=== PATIENT | female | born 1955 | race Caucasian/White ===

== ENCOUNTER → 2020-11-29 13:56 | Outpatient (CLI) | payer OTHER, SELFPAY ==
--- NOTE | ~2020-11-29 | MR_ITS ---
EXAMINATION: MR abdomen wo/w con INDICATION: Microscopic hematuria, history of right nephrectomy TECHNIQUE: Coronal SSFSE ARC, WATER:coronal LAVA-FLEX, Coronal 2D FIESTA FatSat, Axial SSFSE BH ARC, Axial 3D DualEcho BH, Axial SSFSE-IR, Axial DWI b=500, Axial 2D FIESTA FatSat, pre and dynamic postco ntrast Axial LAVA ARC, postcontrast Coronal In and Opposed phase LAVA FLEX COMPARISON: 06/05/2008 CONTRAST: Multihance, 12 cc FINDINGS: There are changes of cholecystectomy and right nephrectomy. There is a 1.3 cm hemorrhagic c yst of the left kidney upper pole. No suspicious renal or urothelial lesion is identified. There is n o hydronephrosis or hydroureter. The spleen, pancreas, and adrenal glands are normal. There is a parking lot manager cornel and unchanged 2.9 x 1.5 cm T1 hypointense, T2 hyperintense lesion in the right hepatic lobe which demonstrates slow filling with contrast, consistent with a hemangioma. Mild enlargement of the commo n bile duct is consistent with post cholecystectomy state. There are no pathologically enlarged abdom inal lymph nodes. No dilated loops of bowel are evident. IMPRESSION: 1. Hemorrhagic cyst of the left kidney upper pole. 2. Changes of interval cholecystectomy right nephrectomy. Reviewed, dictated and finalized at location B.
[2020-11-29 14:25] LABS: Estimated Glomerular Filt Rate > 60
== END ==
PROVIDERS: PCP Nurse Practitioner Family
DX: R31.29 Other microscopic hematuria (principal); N28.1 Cyst of kidney, acquired; Z90.49 Acquired absence of other specified parts of digestive tract
CPT/HCPCS: 74183; A9577

== ENCOUNTER 2022-03-02 00:17 | Day surgery (SDC) | payer BC, SELFPAY ==
--- NOTE | 2022-02-24 15:46 | PC.NURSE ---
Report to the Outpatient Waiting Room, entrance under the green pavilion located off [facility], at time ___0915____ on date __03/02/22 . OR Time: ___1114 . Time changes happen often and if your time is changed the preop area will call you the afternoon before. - You and your visitor will be asked to self-screen and do not enter if you have any COVID symptoms. - Only one visitor and NO children visitors are allowed at this time. - The patient visitor is requested to leave or wait in car when not with patient due to restrictions. - A mask is required within the hospital. Patients may have clear liquids (water, carbonated beverages, clear teas, apple juice) until 3 hours prior to surgery (0815 AM )with a maximum of 20 ounces. - No food from midnight until time of surgery - Infants may have breast milk until 4 hours before surgery, formula 6 hours prior to surgery. - Children will be allowed to drink immediately following surgery. If applicable, please bring a bottle or sippy cup to assist with drinking. Juice, water, soda, and popsicles are readily available. For infants on formula, please bring formula the day of surgery. Pacifiers are allowed. Take the following medications with a SIP of water the morning of surgery: _ATENOLOL LORAZEPAM, NIFEDIPINE & INHALER IF NEEDED__ Medications to discontinue per physician N/A Date to take last dose Please no make-up, nail singaporean, hairspray, perfume, deodorant, or body powder the day of surgery. No jewelry (including any body piercings) or valuables the day of surgery, leave them at home. Please take a shower or bath the night before, or the morning of, surgery with an antibacterial soap. Wear comfortable, loose fitting clothing. Children are encouraged to wear pajamas. - Jewelry must be removed prior to entering the operating room. Rings and piercings that are not removed may be cut off. - The hospital will not accept responsibility for valuables. - Please leave all valuables, including medications, at home the day of surgery. If you are going home after surgery, a licensed milk tanker driver must drive you home. - NO public transportation without another adult. - We recommend that an adult stay with you for 24 hours following discharge. - We also recommend that you do not drive, make important decision, drink alcoholic beverages, or take any drugs that were not prescribed by your health care provider for at least 24 hours after your discharge time. For Pediatric surgeries, we recommend two adults accompany the child home (only one inside the building at this time). Follow any additional instructions given to you from your surgeon. If you or anyone in your household have experienced Covid symptoms in the past week, please notify your surgeon or the nurse liaison at the phone number below for possible testing. Telephone instructions given to ___PT and asked if any additional questions and then verbalized understanding. Patient advised to call surgeon office or pre surgery nurse liaison [phone] if any additional questions.
[2022-02-24 15:48] VITALS: BMI 24.0
--- NOTE | 2022-03-02 08:27 | WPDHPUPDATE1 ---
History and Physical Update Update Date/Time: 03/02/22 08:27 History and Physical has been reviewed, including an updated exam of the patient. There are NO changes in the patient's condition. Risks, benefits, and alternatives have been discussed and questions answered. Patient agrees to proceed with procedure.
--- NOTE | 2022-03-02 08:27 | PM.HPGS ---
History of Present Illness History of Present Illness Consent: Risks, benefits, and alternatives have been discussed and questions answered. Patient agrees to proceed with procedure. Chief complaint: post menopausal bleeding Narrative: Valentina Davis is a 66 year old female with postmenopausal bleeding. Patient's 1st episode was October of 2020. She has had 2 episodes since that time the latest being October of 2021 the patient was seen as a new patient in December of 2021 after having a workup with Urology that was negative. It was recommended to proceed with D&C hysteroscopy as this has occurred 3 times over 1 year. Risks of infection, bleeding, perforation, and possible pathology were reviewed. Patient voices understanding and agrees to proceed. Review of Systems Review of Systems: not repeated day of surgery; patient states no changes in status PMFSH Past Medical History Medical History (Updated 03/02/22 @ 08:31 by Karma Kee MD) Anemia Anxiety COPD (chronic obstructive pulmonary disease) Hyperlipidemia Hypertension (normal spontaneous vaginal delivery) X3 Osteopenia Post-menopausal Renal carcinoma Vitamin deficiency Surgical History Surgical History (Updated 03/02/22 @ 08:30 by Karma Kee MD) History of laparoscopic cholecystectomy History of nephrectomy, right Family History Family History (Updated 12/16/17 @ 11:48 by DOCTOR UNKNOWN) Mother Hypertension Other Family history of cardiovascular disease Social History Social History (Updated 05/03/19 @ 11:37 by Kimberli Yepez [facility]) Years smoked: 15 Smoking status: Current every day smoker Tobacco type: cigarettes Second hand tobacco smoke exposure: Yes Additional smoking assessment comments: STATES WAS SMOKING 1PK/DAY NOW DOWN TO 3 CIGARETTES/DAY Alcohol intake: current Alcohol use details: STATES VERY SELDOM Substance use: never Substance use type: does not use Living arrangements: with friend(s) Additional living arrangements comments: LIVES WITH SIGNIFICANT OTHER REYNALDO HEREDIA Spiritual care concerns: No Meds Home Medications and Allergies Home Medications Medication Instructions Recorded Confirmed Type albuterol sulfate 90 mcg/actuation 2 puff inhalation Q4-6H PRN 05/03/19 02/24/22 History aerosol inhaler (Ventolin HFA) Wheezing doxepin 10 mg capsule 20 mg PO .hs PRN insomnia #60 caps 06/07/19 02/24/22 Rx nifedipine 30 mg tablet,extended 30 mg PO DAILY #90 tabs 08/07/19 02/24/22 Rx release 24 hr (Procardia XL) cholecalciferol (vitamin D3) 1,250 50,000 unit PO WEEKLY #8 caps 08/09/19 02/24/22 Rx mcg (50,000 unit) capsule ranitidine HCl 150 mg tablet 150 mg PO BID #60 tabs 08/09/19 02/24/22 Rx lisinopril 2.5 mg tablet 2.5 mg PO DAILY #90 tabs 08/14/19 02/24/22 Rx atenolol 50 mg tablet 50 mg PO DAILY #90 tabs 03/04/20 02/24/22 Rx lorazepam 0.5 mg tablet (Ativan) 0.5 mg BID 02/24/22 02/24/22 History Allergies Allergy/AdvReac Type Severity Reaction Status Date / Time No Known Allergies Allergy Unverified 02/24/22 15:39 Exam Const: General: healthy appearing and alert Orientation/consciousness: patient oriented x3 GI: GI Palp: Yes Soft to palpation, No Tenderness to palpation present (GI) and No Palpable mass present : External Female Exam: normal external appearance Speculum Exam - Vagina: normal appearance of the vagina, normal vaginal discharge and other (Second-degree rectocele) Speculum Exam - Cervix: normal appearance of the cervix Bimanual exam- vagina & uterus: uterine size normal and consistency normal Bimanual Exam- Adnexa, other: normal adnexae and No adnexal tenderness Neuro: General: patient oriented x3 Assessment and Plan Assessment and plan (1) Post-menopausal bleeding: Code(s): N95.0 - Postmenopausal bleeding Status: Acute Assessment and Plan: Plan to proceed with D&C hysteroscopy
[2022-03-02 10:00] VITALS: BP 144/75; PULSE 81; RESP 14; TEMP 36.6; O2SAT 99
[2022-03-02] MEDS: ACETAMINOPHEN 500 MG TABLET 1000 MG PO (10:05)
[2022-03-02] MEDS: LACTATED RINGERS 1,000 ML 30 ML IV CONT (10:05)
--- NOTE | 2022-03-02 10:39 | WPDANESEPPF ---
Anes - Initial Pre Proc Eval Procedure: Operation Date: 03/02/22 11:15 Proposed Procedures p Hysteroscopy, Dilation and Curettage - Karma Kee MD Date/Time: 03/02/22 10:39 Surgeon: Karma Kee MD Pre Op Diagnosis: post menopausal bleeding Patient Data Age: 66 Gender: F Height: 1.63 m Weight: 64.2 kg Last Vital Signs Temp 36.6 C 03/02/22 10:00 Pulse 81 03/02/22 10:00 Resp 14 03/02/22 10:00 BP 144/75 H 03/02/22 10:00 Pulse Ox 99 03/02/22 10:00 O2 Del Method Room Air 03/02/22 10:00 Allergies Allergy/AdvReac Type Severity Reaction Status Date / Time No Known Allergies Allergy Verified 03/02/22 10:06 Home Medications Medication Instructions Recorded Confirmed Type albuterol sulfate 90 mcg/actuation 2 puff inhalation Q4-6H PRN 05/03/19 02/24/22 History aerosol inhaler (Ventolin HFA) Wheezing doxepin 10 mg capsule 20 mg PO .hs PRN insomnia #60 caps 06/07/19 02/24/22 Rx nifedipine 30 mg tablet,extended 30 mg PO DAILY #90 tabs 08/07/19 03/02/22 Rx release 24 hr (Procardia XL) cholecalciferol (vitamin D3) 1,250 50,000 unit PO WEEKLY #8 caps 08/09/19 02/24/22 Rx mcg (50,000 unit) capsule ranitidine HCl 150 mg tablet 150 mg PO BID #60 tabs 08/09/19 02/24/22 Rx lisinopril 2.5 mg tablet 2.5 mg PO DAILY #90 tabs 08/14/19 02/24/22 Rx atenolol 50 mg tablet 50 mg PO DAILY #90 tabs 03/04/20 02/24/22 Rx lorazepam 0.5 mg tablet (Ativan) 0.5 mg BID 02/24/22 03/02/22 History Patient hx anesthesia problems: none Family hx anesthesia problems: none Results Review: All pre-operative results and documents have been reviewed as part of the pre-operative evaluation. [facility] Past Medical History Medical History Anemia Anxiety COPD (chronic obstructive pulmonary disease) Hyperlipidemia Hypertension (normal spontaneous vaginal delivery) X3 Osteopenia Post-menopausal Renal carcinoma Vitamin deficiency Surgical History Surgical History History of laparoscopic cholecystectomy History of nephrectomy, right Family History Family History Mother Hypertension Other Family history of cardiovascular disease Social History Social History (Updated 05/03/19 @ 11:37 by Kimberli Yepez [facility]) Years smoked: 15 Smoking status: Current every day smoker Tobacco type: cigarettes Second hand tobacco smoke exposure: Yes Additional smoking assessment comments: STATES WAS SMOKING 1PK/DAY NOW DOWN TO 3 CIGARETTES/DAY Alcohol intake: current Alcohol use details: STATES VERY SELDOM Substance use: never Substance use type: does not use Living arrangements: with friend(s) Additional living arrangements comments: LIVES WITH SIGNIFICANT OTHER REYNALDO HEREDIA Spiritual care concerns: No Anes - Eval Final PreProcedure Day of Procedure 03/02/22 10:39 Patient weight: normal Heart: regular rate and rhythm Lungs: decreased breath sounds Airway: Mallampati scale class II Neurological: alert and oriented Last oral intake: >/= 8 hours ASA classification: III Emergent: no Anesthetic plan: proceed Anesthesia type and monitoring: general GIVS and standard monitoring Results Review: All pre-operative results and documents have been reviewed as part of the pre-operative evaluation. Informed Consent: The patient's anesthetic plan and its attendant risks and benefits were discussed with the patient/family/POA. Questions were solicited and answers provided to the satisfaction of the patient/family/POA.
[2022-03-02] MEDS: LIDOCAINE HCL 1% PF 30 ML VIAL 10 ML INFILTRATE (11:12)
--- NOTE | 2022-03-02 11:23 | W.PM.PROC2 ---
Procedure Note - Detailed Date of Procedure 03/02/22 Pre-op Diagnosis post menopausal bleeding Post-op Diagnosis Same Procedure Performed D&C hysteroscopy with MyoSure resection of polyp Surgeon Karma Kee MD Anesthesia MAC and Local Findings Uterus sounds to 8cm. There is a posterior left uterine polyp. Atrophic endometrium. Description of Procedure The patient was taken to the operating room and placed under anesthesia in the dorsal lithotomy position. She was prepped and draped in the usual sterile fashion. [place] speculum was placed in the vagina and the cervix grasped on the anterior lip with a tenaculum. The cervix was injected in each quadrant with lidocaine. The uterus is sounded to 8cm. The cervix is serially dilated to an 8 [place]. The diagnostic hysteroscope was placed. As a polyp was found the MyoSure device is opened and placed. The MyoSure device is used to remove the polyp in its entirety under direct visualization. The MyoSure device was then removed and the sharp curette used to curette the endometrium until a good uterine cry was noted in all areas. Minimal material was obtained consistent with the atrophic appearance of the remainder of the endometrium. The instruments are removed. Sponge, needle, and instrument counts are correct. Patient is awakened from anesthesia and taken to recovery in stable condition. Estimated Blood Loss 5 Drains No Packing No Pathology Yes (Endometrial shavings and curettings) Condition Stable Disposition PACU
[2022-03-02 11:26] VITALS: BP 108/64; PULSE 68; RESP 20
[2022-03-02] MEDS: oxyCODONE HCL (*CRX) 5 MG TAB IR PO (11:49)
[2022-03-02 11:50] VITALS: BP 127/64; PULSE 58; RESP 20
[2022-03-02 12:15] VITALS: BP 133/73; PULSE 60; RESP 20
== END 2022-03-02 12:20 | disposition home or self-care (01) ==
PROVIDERS: PCP Nurse Practitioner Family; Visit Provider Obstetrics & Gynecology Gynecology
PROC: 0U5B8ZZ Destruction of Endometrium, Via Natural or Artificial Opening Endoscopic (ICD-10-PCS; CPT 58563; principal; 2022-03-02 11:15)
DX: N95.0 Postmenopausal bleeding (principal); N84.0 Polyp of corpus uteri; J44.9 Chronic obstructive pulmonary disease, unspecified; I10 Essential (primary) hypertension; E78.5 Hyperlipidemia, unspecified; D64.9 Anemia, unspecified; M85.80 Other specified disorders of bone density and structure, unspecified site; F41.9 Anxiety disorder, unspecified; Z79.51 Long term (current) use of inhaled steroids; F17.210 Nicotine dependence, cigarettes, uncomplicated
CPT/HCPCS: 58558; 88305; A9270; J1100; J2405; J2704; J3010; J7030; J7120

== ENCOUNTER 2024-01-26 09:16 | Outpatient (CLI) | payer BC, SELFPAY ==
--- NOTE | ~2024-01-26 | US_ITS ---
EXAMINATION: US renal BI DATE: 01/26/2024 10:18 INDICATION: Abnormal result of kidney function studies TECHNIQUE: Multiple ultrasound grayscale images of the kidneys were obtained. COMPARISON: None. FINDINGS: The right kidney is not visualized and reportedly surgically absent. The left kidney measures 12.9 x 4.3 x 4.6 cm. The liver left kidney demonstrates normal echogenicity and no hydronephrosis. 1.7 cm ex ophytic cyst arising from the upper pole of the left kidney. No stones identified. The bladder is nor mal with left ureteral jets visualized on color Doppler. Instantly noted 3.4 cm anechoic left adnexal cyst. IMPRESSION: 1. 1.7 cm exophytic left renal cyst. Otherwise normal left kidney with no hydronephrosis. 2. Status post right nephrectomy. 3. 3.4 cm simple appearing left adnexal cyst. Reviewed, dictated and finalized at location A. IMPRESSION: 1. 1.7 cm exophytic left renal cyst. Otherwise normal left kidney with no hydr onephrosis. 2. Status post right nephrectomy. 3. 3.4 cm simple appearing left adnexal cyst.
== END 2024-01-26 09:17 | disposition home or self-care (01) ==
PROVIDERS: PCP Nurse Practitioner Family; Visit Provider Internal Medicine Nephrology
DX: R94.4 Abnormal results of kidney function studies (principal); N28.1 Cyst of kidney, acquired; Z90.5 Acquired absence of kidney
CPT/HCPCS: 76775